=== PATIENT | female | born 1960 | race Caucasian/White ===

== ENCOUNTER 2024-09-07 06:35 | Outpatient (OUT) | payer OTHER, SELFPAY ==
--- NOTE | 2024-09-07 06:48 | US_ITS ---
The [address] [address] Patient Name: ELIZABETH DURAN MRN: [id number] date: 1960 Sex: F Assigned Patient Location: US Current Patient Location: US Accession/Order Number: [id number] Exam Date: 09/07/2024 08:48 Report Date: 09/07/2024 08:51 At the request of: TD GASTELUM NP Procedure: US right upper quadrant LIMITED RIGHT UPPER QUADRANT ABDOMINAL ULTRASOUND CLINICAL HISTORY: R10.11 Right upper quadrant pain, nausea and vomiting for the past couple months COMPARISON: None The gallbladder is physiologically distended without shadowing calculi, wall thickening or pericholecystic fluid. No intra- or extrahepatic biliary dilatation is evident. The common duct measures 2 - 3 mm. The liver parenchyma is slightly echogenic and fatty infiltration is not excluded. No intrahepatic masses are seen. There is appropriate hepatopetal flow within the main portal vein. The pancreas shows no significant sonographic abnormality. Cursory evaluation of the right kidney reveals no hydronephrosis or fluid within Gaitan's pouch. A cyst is present at the upper pole 2.5 x 1.9 x 1.6 cm. US/US right upper quadrant IMPRESSION: NO GALLBLADDER PATHOLOGY. POSSIBLE FATTY LIVER. INCIDENTAL RIGHT RENAL CYST. Impression dictated by: Elif Perez M.D. 09/07/2024 8:51 AM Dictation Location: [place] [address] Electronically authenticated by: [id number] Y Date: 09/07/2024 08:51
== END 2024-09-07 06:36 | disposition home or self-care (01) ==
LOC: US 06:39
PROVIDERS: PCP Nurse Practitioner Family; Visit Provider Nurse Practitioner Family
DX: R10.11 Right upper quadrant pain (principal); N28.1 Cyst of kidney, acquired
CPT/HCPCS: 76705

== ENCOUNTER 2024-12-30 09:58 | Outpatient (OUT) | payer OTHER, SELFPAY ==
--- OUTSIDE RECORDS SUMMARY | 2024-12-30 10:02 | XMS_ITS | Clinical Summary ---
Author Organization [facility] Address [id number] [place] [address] Care Team Providers Care Aluminum Boat Inspector Name Role Phone Mary Paul APRN-LINK CUTTER Primary Care Pro vider Allergies Active AllergyReactionsCriticalityNoted CxubSobomknmIoicihyrwqrz13/05/2021 Severe agitation Sulfa (Sulfonamide Antibiotics)03/31/2019 Medications MedicationSigDispense QuantityRefillsLast FilledStart DateEnd DateStatus sertraline (ZOLOFT) 100 mg tablet Take 2 tablets (200 mg total) by mouth in the morning.02/28/2019Active traZODone (DESYREL) 50 mg tablet 03/13/2019Active ARIPiprazole (ABILIFY) 5 mg tablet Take 2 tablets (10 mg total) by mouth in the morning.Active levothyroxine (SYNTHROID, LEVOTHROID) 125 MCG tablet Take 1 tablet (125 mcg total) by mouth in the morning.Active nitrofurantoin (MACRODANTIN) 50 mg capsule Take 1 tablet daily as directed 90 capsule 508/ctive Active Problems ProblemNoted DateDiagnosed DateRecurrent urinary tract iiiqfzhzk17/22/2020 Overview (09/22/2024): ==== 09/22/2024 ==== still doing well. Macrodantin 50 mg around the time we have intercourse. Refilled today. Patient states she may have to change physicians urologist given her healthcare plan. Be happy to see you should that change. ==== 09/24/2023 ==== now takes Macrobid 1 tablet after intercourse. Doing well. No recurrent UTI. Plan: Maintain current course. Refill went necessarily see her back in 1 year ==== 06/03/2022 ==== has done very well pn daily nitrofurantion. No interval UTI. We discussed bony every other night and then back to nightly should she have any recurrence. See her back in 1 year. PLAN: refilled. Prescription drug management performed during today's office visit rtc one year ==== 03/31/2019 ==== history of recurrent urinary tract infections. Has had establish care with urologist outside of the state. Had been placed on nitrofurantoin 50 mg daily. Has done more remarkably well with this. When she is weaned off she has had some recurrence. Last UTI was about 6 months ago.The been uncomplicated. Presents today for establishment of care and refill of medication PLAN: Patient has been on well establish a course of prophylactic antibiotic. Tolerated extremely well. I see no reason to adjust from this course therapy. I can refill her Macrobid currently. Goingforward certainly this could be performed through primary care and I would be happy to see the patient in the office should she have any issues. Family History Medical HistoryRelationNameCommentsHeart diseaseFatherDuane KerrHyperlipidemia FatherDuane KerrHypertensionFatherDuane KerrProstate cancerFatherDuane Zepeda Alcohol abuseMotherAudrey KerrArthritisMotherAudrey KerrDepressionMotherAudrey KerrDrug abuseMotherAudrey KerrHypertensionMotherAudrey KerrMental illnessMother Zahra KerrMiscarriages / StillbirthsMotherAudrey KerrBreast cancerNeg Hx RelationNameStatusCommentsFatherDuane KerrAliveMotherAudrey KerrAlive Social History Tobacco UseTypesPacks/DayYears UsedDateSmoking Tobacco: FormerCigarettes0.513 Smokeless Tobacco: Never Tobacco Cessation:Counseling Given: Not Answered Comments:quit 04/2020 Alcohol UseStandard Drinks/WeekCommentsNot Currently0 (1 standard drink = 0.6 oz pure alcohol)ChildcareAnswerDate BepgotnlNgcqepptbGmyegyr45/13/2019Employment AnswerDate JaqhydrfAenixqdlzxUmxcjir65/13/2019Hunger ScreeningAnswerDate RecordedWithin the past 12 months we worried whether our food would run out before we got money to buy more.Never True09/22/2024Within the past 12 months the food we bought just didn't last and we didn't have money to get more.Never True09/22/2024Purpose - LifeAnswerDate RecordedPurpose and direction in life Uyjihln21/19/2021CommentsNoSex and Gender InformationValueDate Recorded Sex Assigned at KgfbpFrhtex48/20/2021 9:30 AM ESTLegal ZdhKcslix56/28/2019 2:42 PM EDTGender IshlbrdhRdpyqj55/20/2021 9:30 AM ESTSexual OrientationStraight 03/29/2020 9:30 AM EST Last Filed Vital Signs Vital SignReadingTime TakenCommentsBlood Sxoujtrb056/6907 1:38 PM EDT Uetpt297509/22/2024 1:38 PM CEAMvsbjorcdda00.8 ??C (98.2 ??F)12/14/2020 8:03 AM EDTRespiratory Kqyq479806/03/2022 1:33 PM EDTOxygen Rdrmexrhad04%12/14/2020 10:25 AM EDTInhaled Oxygen Concentration--Kohcti02.8 kg (176 lb)09/22/2024 1:38 PM EDT Xfolbd018.9 cm (5' 1 )09/22/2024 1:38 PM EDTBody Mass Index33.25009/22/2024 1:38 PM EDT Plan of Treatment Health MaintenanceDue DateLast DoneCommentsDepression Dfeodkjum24/05/1974Adult BMI Follow Up Plan07/13/1979COVID-19 Vaccine ( season)2024 01/02/2023, 12/07/2021, 06/16/2021, Additional history existsInfluenza Vaccine 5003/24/2024, 11/18/2022, 02/01/2022, Additional history existsAdult BMI Vobwaivpr83/16/63969009/22/2024Tobacco Lbdfnbrqz99/16/20385009/22/2024DTaP,Tdap and Td Vaccines (2 - Td or Tdap)Zoster (Shingles) Vaccine Jdlvvryge94/01/2023, 04/22/2022 Medical Devices Not on file Insurance Care Teams Team MemberRelationshipSpecialtyStart DateEnd Date Mary Paul, STAMP MAKER-LINK CUTTER [address] [place] [id number] PCP - GeneralNurse Practitioner09/22/24
--- OUTSIDE RECORDS SUMMARY | 2024-12-30 10:02 | XMS_ITS | Clinical Summary ---
Author Organization [facility] Address [address] [place] [address] Care Team Providers Care Pet Handler Name Role Phone Unallocated, [facility] Provider Primary Care Provi candy Allergies Active AllergyReactionsCriticalityNoted OmutKdkoigmvOzzczgeozpfz09/05/2021 Severe agitation Sulfa Hixobnmxvtc19/22/2020 Medications MedicationSigDispense QuantityRefillsLast FilledStart DateEnd DateStatus ARIPiprazole (Abilify) 5 MG tablet Take 10 mg by mouth in the morning.Active desvenlafaxine (Pristiq) 50 MG 24 hr tablet Take 50 mg by mouth Daily09/17/2023ctive levothyroxine (Synthroid, Levoxyl) 125 MCG tablet Indications:Postsurgical hypothyroidismTake 1 tablet (125 mcg) by mouth in the morning. Take before meals. 90 tablet 9ctive Active Problems ProblemNoted DateDiagnosed DatePostsurgical nbfkbbgciecpwi05/03/2025 Thyrotoxicosis with diffuse voesqm1105/10/2024Dietary sexpmnxoiu55/03/2025ody mass index 37.0-37.9, adult05/10/2024Recurrent urinary tract /22/2020 Overview (05/10/2024): ==== 09/24/2023 ==== now takes Macrobid 1 [...] therapy. I can refill her Macrobid currently. Going forward certainly this could be performed through primary care and I would be happy to see the patient in the office should she have any issues. 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; Vitamin D deficiency; Encounter for dietary consultation; Class 2 obesity due to excess calories without serious comorbidity with body mass index (BMI) of 36.0 to 36.9 in adult11/17/2024amboo flowsheet [address] [place] [address] Dmitri Medina MD 11/11/2024Orders Only [facility] [address] [place] [address] Dmitri Median MD 11/10/2024Travelfrom Last 3 Months Immunizations ImmunizationAdministration DatesNext DueABRYSVO - Respiratory syncytial virus (RSV), vaccine, bivalent, protein subunit RSV prefusion F, diluent reconstituted, 0.5 mL, PF02/06/2023Influenza, injectable, MDCK, preservative free, ltlacytdatbi07/02/2021Influenza, recombinant, quadrivalent, injectable, preservative free11/18/2022,02/01/2022Influenza, seasonal, injectable, preservative free11/21/2014Tdap08/09/2020Zoster, Uhxidnlxhzo12/01/2023, 04/22/2022 Family History Medical HistoryRelationNameCommentsDementiaFatherHeart diseaseFather HyperlipidemiaFatherHypertensionFatherProstate cancerFatherAlcohol abuseMother GlaucomaMotherHypertensionMotherMental illnessMotherPeripheral vascular disease CsqmahBdajaeerWwlwYqjrfvSbksfdweBcmnhfi0Ioczxycd9FejgpNvkkeqBnnnvcmbUhgvaf QywejgsnKyfhuo5Iud7Ramnk Social History Tobacco UseTypesPacks/DayYears UsedDateSmoking Tobacco: FormerCigarettes CommentsUnknownSex and Gender InformationValueDate RecordedSex Assigned at Not on fileLegal KtyCofpnu09/15/2023 11:19 PM EDTGender IdentityNot on file Sexual OrientationNot on file Last Filed Vital Signs Vital SignReadingTime TakenCommentsBlood Udtidamq564/64011/17/2024 9:36 AM EDT Ijvko829311/17/2024 9:36 AM EDTTemperature--Respiratory Gjom719511/17/2024 9:36 AM EDTOxygen Wdrtrvepwv19%11/17/2024 9:36 AM EDTInhaled Oxygen Concentration-- Hslocf16.6 kg (171 lb)11/17/2024 9:36 AM LQFRqbkad159.9 cm (5' 1 )11/17/2024 9:36 AM EDTBody Mass Index32.31011/17/2024 9:36 AM EDT Plan of Treatment DateTypeDepartmentCare Team (Latest Contact Info)Wfrlgduafnn75/09/2026 9:30 AM EDTOffice Visit [facility] [place] [facility] [address] [place] [address] Dmitri Medina MD [address], [address] [place] [address] Health MaintenanceDue DateLast DoneCommentsPap Smear1982Cervical Cancer Lwzdgmwhb35/05/1992HPV/Pszrzr5007/13/19919802Ryzxfbnkj86/11/21671909/18/2023, 09/16/2022, 09/14/2021, Additional history existsInfluenza Vaccine (#1) 501/, 11/18/2022, 02/01/2022, Additional history exists EebjmagifakAlpybmkuntlw94/07/2021olorectal Cancer ScreeningDiscontinuedCT ColonographyDiscontinuedFIT-DNADiscontinuedFITDiscontinuedFOBTDiscontinued SigmoidoscopyDiscontinued Procedures Procedure NamePriorityDate/TimeAssociated CdtvpiajfZmsnjhwdWKYVoxaxjh09/04/2025 8:14 AM EDTT4, MHFXKeyyoou37/04/2025 8:14 AM EDTT3, CFSOKbbgpgg45/04/2025 8:14 AM EDTfrom Last 3 Months Results * T3, free (11/11/2024 8:14 AM EDT)Specimen (Source)Anatomical Location / LateralityCollection Method / VolumeCollection TimeReceived TimeBloodVenous blood specimen / Unknown Narrative Authorizing ProviderResult TypeResult StatusGunnison Valley Hospitaldunia Carol MDLAB BLOOD ORDERABLESFinal Result * TSH (11/11/2024 8:14 AM EDT)Specimen (Source)Anatomical Location / Laterality Collection Method / VolumeCollection TimeReceived TimeBloodVenous blood specimen / Unknown Narrative Authorizing ProviderResult TypeResult StatusCar[facility] Carol AudienceScienceLAB BLOOD ORDERABLESFinal Result * T4, free (11/11/2024 8:14 AM EDT)Specimen (Source)Anatomical Location / LateralityCollection Method / VolumeCollection TimeReceived TimeBloodVenous blood specimen / Unknown Narrative Authorizing ProviderResult TypeResult StatusCornerstone Specialty Hospitals Shawnee – ShawneeLAB BLOOD ORDERABLESFinal Result from Last 3 Months Insurance * Guarantor: Narcisa Dorantes TypeRelation to PatientDate of PhoneBilling AddressPersonal/PwfbboYvxi93/05/1961 [address] [address] Care Teams Team MemberRelationshipSpecialtyStart DateEnd Date Unallocated, [facility] Provider, [address] [place] [address] PCP - GeneralFamily Medicine11/25/23
--- NOTE | 2024-12-30 10:12 | MM_ITS ---
Patient Name: ELIZABETH DURAN MR#: [id number] : 1960 Exam Date: 12/30/2024 Ordering Doctor: TD GASTELUM RADIOLOGY REPORT PROCEDURE: MM TOMOSYNTHESIS SCREENING BI COMPARISON: MG MAMM DX 3D RT CAD, 09/23/2023. MM TOMOSYNTHESIS SCREENING BI, 09/18/2023. MM TOMOSYNTHESIS SCREENING BI, 09/16/2022. MM TOMOSYNTHESIS SCREENING BI, 09/14/2021. INDICATIONS: screening Calculator Name NCI Breast Cancer Risk Assessment Tool 5 Year Breast Cancer Risk 1.40% Lifetime Breast Cancer Risk 6.00% Personal Breast Cancer No Personal Ovarian Cancer No Treatments None Family Cancers Father with prostate cancer at age 80; Sister with thyroid cancer at age 35. LOCATION: [facility] BREAST COMPOSITION: There are scattered areas of fibroglandular density. FINDINGS: RIGHT BREAST: No significant suspicious finding. Similar focal asymmetries are present. Benign-appearing calcifications are present. LEFT BREAST: No significant suspicious finding. Similar focal asymmetries are present compared DIAGNOSTIC CATEGORY 2--BENIGN FINDING. NO CHANGE FROM COMPARISON. RECOMMENDATIONS: ROUTINE MAMMOGRAM AND CLINICAL EVALUATION IN 12 MONTHS. Dictated by: Kenrick Conklin MD on 12/31/2024 at 12:37 Approved by: Kenrick Conklin MD on 12/31/2024 at 12:55
== END 2024-12-30 09:59 | disposition home or self-care (01) ==
PROVIDERS: PCP Nurse Practitioner Family; Visit Provider Nurse Practitioner Family
DX: Z12.31 Encounter for screening mammogram for malignant neoplasm of breast (principal); Z80.42 Family history of malignant neoplasm of prostate; Z80.8 Family history of malignant neoplasm of other organs or systems
CPT/HCPCS: 77063; 77067